=== PATIENT | male | born 1955 | race Caucasian/White ===

== ENCOUNTER → 2016-03-05 | Outpatient (CLI) | payer BC ==
[~2016-03-05] MED LIST: ASPIRIN ADULT L81 M3 PO; CIPRO 250MG TA250 MG PO; FISH OIL500 M1 PO; FLOMAX PO; GLUCOPHAGE1000 MG PO; JANUVIA100 MG PO; LISINOPRIL10 MG PO; LOVASTATIN20 M1 PO; LYRICA 100MG C100 M1 PO; MULTIVITAMIN1 SGL PO; PERCOCET 325 MG1 TAB PO; POLYOX95% PO
== END ==
LOC: LAB 07:43
DX: E11.9 Type 2 diabetes mellitus without complications (principal)

== ENCOUNTER → 2016-09-30 | Outpatient (CLI) | payer BC ==
[2015-04-08 07:44] VITALS: BP 125/72
== END ==
LOC: LAB 07:02
DX: E78.2 Mixed hyperlipidemia (principal); E11.9 Type 2 diabetes mellitus without complications

== ENCOUNTER → 2016-10-08 | Outpatient (CLI) | payer BC ==
[2015-04-08 07:44] VITALS: BP 125/72
== END ==
LOC: LAB 10:20
DX: E11.9 Type 2 diabetes mellitus without complications (principal); I10 Essential (primary) hypertension

== ENCOUNTER → 2017-04-07 | Outpatient (CLI) | payer BC ==
[2015-04-08 07:44] VITALS: BP 125/72
[2017-04-07 12:29] LABS: EOS % 0.6 % (0.0-4.0); HEMATOCRIT 42.5 % (42.0-52.0); HEMOGLOBIN 14.6 g/dL (13.5-18.0); LYMPH# 0.8 (1.50-4.00); MEAN CELL VOLUME 89 fl (78-100); MEAN CORPUSCULAR HEMOGLOBIN 31 pg (27-31); MEAN CORPUSCULAR HGB CONC 34 g/dL (33-37); MEAN PLATELET VOLUME 10.9 fl (7.4-10.4); MONO # 0.3 (0.20-0.80); NEU # 3.9 (1.40-6.50); PLATELET COUNT 108 K/mm3 (130-400); RED BLOOD COUNT 4.79 M/mm3 (4.20-5.60); RED CELL DISTRIBUTION WIDTH 12.3 % (11.5-14.5); WHITE BLOOD COUNT 5.1 K/mm3 (4.8-10.8)
== END ==
LOC: RAD 11:39
PROVIDERS: Nurse Practitioner Family
DX: R05 Cough (principal); R06.02 Shortness of breath

== ENCOUNTER → 2017-04-17 | Outpatient (CLI) | payer BC ==
[2015-04-08 07:44] VITALS: BP 125/72
== END ==
LOC: LAB 13:57
DX: E11.9 Type 2 diabetes mellitus without complications (principal)

== ENCOUNTER → 2017-04-23 | Outpatient (CLI) | payer BC ==
[2015-04-08 07:44] VITALS: BP 125/72
== END ==
LOC: RAD 14:36
DX: M89.8X1 Other specified disorders of bone, shoulder (principal); K43.9 Ventral hernia without obstruction or gangrene

== ENCOUNTER 2017-05-04 06:34 | Emergency (ER) | payer BC ==
[~2017-05-04] VITALS: Ht 180.3 cm; Wt 116.4 kg
[2017-05-04 07:34] LABS: EOS # 0.1 (0.04-0.40); EOS % 3.7 % (0.0-4.0); HEMOGLOBIN 14.3 g/dL (13.5-18.0); LYMPH# 1.2 (1.50-4.00); MEAN CELL VOLUME 89 fl (78-100); MEAN CORPUSCULAR HEMOGLOBIN 32 pg (27-31); MEAN CORPUSCULAR HGB CONC 36 g/dL (33-37); MEAN PLATELET VOLUME 10.6 fl (7.4-10.4); MONO # 0.4 (0.20-0.80); NEU # 2.1 (1.40-6.50); PLATELET COUNT 111 K/mm3 (130-400); RED CELL DISTRIBUTION WIDTH 12.8 % (11.5-14.5); WHITE BLOOD COUNT 3.8 K/mm3 (4.8-10.8)
[2017-05-04 07:53] LABS: BUN/CREATININE RATIO 20.6 (6.0-26.0); CALCIUM 9.4 mg/dL (8.4-10.2); POTASSIUM 4.2 mmol/L (3.6-5.0)
[2017-05-04 09:02] LABS: URINE APPEARANCE CLOUDY; URINE COLOR YELLOW; URINE PROTEIN(semi-quant) NEGATIVE (NEGATIVE)
[2017-05-04 09:03] LABS: URINE BILIRUBIN NEGATIVE (NEGATIVE); URINE BLOOD 250 ery/uL (NEGATIVE); URINE KETONE SMALL (NEGATIVE); URINE LEUKOCYTE ESTERASE NEGATIVE (NEGATIVE); URINE NITRATE NEGATIVE (NEGATIVE); URINE UROBILINOGEN NORMAL (NORMAL); URINE WBC 0-1 /hpf (0-3)
[2017-05-04] MEDS ORDERED: PERCOCET 325 MG1 TA2 PO (09:06)
[2017-05-04 09:48] VITALS: BP 129/75
== END 2017-05-04 09:28 | disposition home or self-care (01) ==
LOC: ED 06:34
PROVIDERS: Family Medicine
DX: N20.1 Calculus of ureter (principal); E11.9 Type 2 diabetes mellitus without complications; I10 Essential (primary) hypertension; Z87.442 Personal history of urinary calculi; Z79.84 Long term (current) use of oral hypoglycemic drugs
CPT/HCPCS: J1885; J2270; Q9967

== ENCOUNTER → 2017-05-07 | Outpatient (CLI) | payer BC ==
[2017-05-04 09:48] VITALS: BP 129/75
[~2017-05-07] MED LIST changes: +PERCOCET 325 MG1 TA2 PO
[2017-05-07 17:32] LABS: PH-URINE 6.5 (5.0 - 8.0); URINE APPEARANCE HAZY; URINE BILIRUBIN NEGATIVE (NEGATIVE); URINE BLOOD 250 ery/uL (NEGATIVE); URINE COLOR PINKISH YELLOW; URINE KETONE NEGATIVE (NEGATIVE); URINE LEUKOCYTE ESTERASE NEGATIVE (NEGATIVE); URINE NITRATE NEGATIVE (NEGATIVE); URINE PROTEIN(semi-quant) 1+ mg/dL (NEGATIVE); URINE UROBILINOGEN NORMAL (NORMAL)
== END ==
LOC: RAD 16:42
PROVIDERS: Family Medicine
DX: N20.0 Calculus of kidney (principal); R50.9 Fever, unspecified

== ENCOUNTER → 2017-10-12 | Outpatient (CLI) | payer BC ==
[2017-10-12 07:41] LABS: ALBUMIN 4.4 g/dL (3.5-5.0); BUN/CREATININE RATIO 25.7 (6.0-26.0); CALCIUM 9.3 mg/dL (8.4-10.2); TOTAL BILIRUBIN 0.5 mg/dL (0.2-1.3); TOTAL PROTEIN 7.4 g/dL (6.3-8.2)
== END ==
LOC: LAB 07:10
PROVIDERS: Family Medicine
DX: E11.40 Type 2 diabetes mellitus with diabetic neuropathy, unspecified (principal); I10 Essential (primary) hypertension; E78.5 Hyperlipidemia, unspecified; E66.9 Obesity, unspecified; L74.519 Primary focal hyperhidrosis, unspecified; M25.511 Pain in right shoulder; G89.29 Other chronic pain; M19.90 Unspecified osteoarthritis, unspecified site; Z86.31 Personal history of diabetic foot ulcer

== ENCOUNTER → 2018-01-11 | Outpatient (CLI) | payer BC | LOC: LAB 08:13 | DX: E11.40 Type 2 diabetes mellitus with diabetic neuropathy, unspecified (principal); E11.69 Type 2 diabetes mellitus with other specified complication; L84 Corns and callosities; I10 Essential (primary) hypertension; Z86.31 Personal history of diabetic foot ulcer ==

== ENCOUNTER 2018-01-14 09:30 | Outpatient (RCR) | payer BC | END 2018-03-08 | disposition home or self-care (01) | LOC: PT | DX: M19.90 Unspecified osteoarthritis, unspecified site (principal); M25.511 Pain in right shoulder; G89.29 Other chronic pain; M25.512 Pain in left shoulder; Z91.81 History of falling ==

== ENCOUNTER → 2018-01-15 | Outpatient (CLI) | payer BC | LOC: RAD 10:50 | DX: M19.012 Primary osteoarthritis, left shoulder (principal); M51.36 Other intervertebral disc degeneration, lumbar region; M16.0 Bilateral primary osteoarthritis of hip; M41.85 Other forms of scoliosis, thoracolumbar region; M50.31 Other cervical disc degeneration, high cervical region ==

== ENCOUNTER → 2018-01-18 | Outpatient (CLI) | payer BC | LOC: RAD 15:15 | DX: M50.30 Other cervical disc degeneration, unspecified cervical region (principal); M50.221 Other cervical disc displacement at C4-C5 level; M48.02 Spinal stenosis, cervical region; M47.26 Other spondylosis with radiculopathy, lumbar region; M51.27 Other intervertebral disc displacement, lumbosacral region; M48.061 Spinal stenosis, lumbar region without neurogenic claudication ==

== ENCOUNTER → 2018-02-03 | Outpatient (CLI) | payer BC | LOC: RAD 09:04 | DX: S46.002A Unspecified injury of muscle(s) and tendon(s) of the rotator cuff of left shoulder, initial encounter (principal); M24.012 Loose body in left shoulder ==

== ENCOUNTER → 2018-02-08 | Outpatient (CLI) | payer BC | LOC: RAD 14:03 | DX: M19.012 Primary osteoarthritis, left shoulder (principal); S46.012A Strain of muscle(s) and tendon(s) of the rotator cuff of left shoulder, initial encounter; M75.92 Shoulder lesion, unspecified, left shoulder; Z91.81 History of falling ==

== ENCOUNTER → 2018-04-26 | Outpatient (CLI) | payer BC | LOC: LAB 07:03 | DX: E11.9 Type 2 diabetes mellitus without complications (principal) ==

== ENCOUNTER → 2018-05-10 | Outpatient (CLI) | payer BC | LOC: RAD 09:33 | DX: J01.80 Other acute sinusitis (principal); I10 Essential (primary) hypertension ==

== ENCOUNTER 2018-05-14 14:30 | Outpatient (RCR) | payer BC | END 2018-05-14 15:00 | disposition home or self-care (01) | LOC: PT 14:30 | DX: M47.817 Spondylosis without myelopathy or radiculopathy, lumbosacral region (principal) ==

== ENCOUNTER 2018-08-23 10:57 | Outpatient (RCR) | payer MEDICARE, OTHER ==
[~2018-08-23 10:57] MED LIST changes: +JANUVIA 100MG100 MG PO; -JANUVIA100 MG PO; -LYRICA 100MG C100 M1 PO; +LYRICA100 MG PO
[2018-10-13] MEDS ORDERED: PIOGLITAZONE HC15 MG PO (13:46)
[2018-10-13] MEDS ORDERED: MIRALAX17 GM PO (13:48)
== END 2018-08-23 11:30 | disposition still patient (30) ==
LOC: SPEECH 10:57
DX: R13.13 Dysphagia, pharyngeal phase (principal); G47.33 Obstructive sleep apnea (adult) (pediatric); E11.9 Type 2 diabetes mellitus without complications; R07.0 Pain in throat

== ENCOUNTER → 2018-08-30 | Outpatient (CLI) | payer MEDICARE, OTHER ==
[~2018-08-30] MED LIST changes: -JANUVIA 100MG100 MG PO; +JANUVIA100 MG PO; +LYRICA 100MG C100 M1 PO; -LYRICA100 MG PO
== END ==
LOC: RAD 07:24
DX: R13.10 Dysphagia, unspecified (principal); R07.0 Pain in throat
CPT/HCPCS: Q9967

== ENCOUNTER → 2018-10-11 | Outpatient (CLI) | payer MEDICARE, OTHER ==
[~2018-10-11] MED LIST changes: +JANUVIA 100MG100 MG PO; -JANUVIA100 MG PO; -LYRICA 100MG C100 M1 PO; +LYRICA100 MG PO; +MIRALAX17 GM PO; +PIOGLITAZONE HC15 MG PO
[2018-10-11 07:58] LABS: ALBUMIN 4.1 g/dL (3.4-4.8); POTASSIUM 4.1 mmol/L (3.5-5.1)
[2018-10-11 07:59] LABS: CALCIUM 9.4 mg/dL (8.3-10.5)
[2018-10-11 08:00] LABS: TOTAL PROTEIN 7.7 g/dL (6.2-8.1)
[2018-10-11 08:02] LABS: TOTAL BILIRUBIN 0.4 mg/dL (0.2-1.2)
[2018-10-11 17:57] LABS: HEPATITIS C VIRUS ANTIBODY Negative (Negative)
== END ==
LOC: LAB 07:06
PROVIDERS: Family Medicine
DX: Z11.3 Encounter for screening for infections with a predominantly sexual mode of transmission (principal); Z12.5 Encounter for screening for malignant neoplasm of prostate; Z13.6 Encounter for screening for cardiovascular disorders; E11.9 Type 2 diabetes mellitus without complications; E78.5 Hyperlipidemia, unspecified; I10 Essential (primary) hypertension

== ENCOUNTER → 2018-10-13 | Outpatient (CLI) | payer MEDICARE, OTHER ==
[~2018-10-13] VITALS: Ht 180.3 cm; Wt 122.7 kg
[2018-10-13 13:35] VITALS: BP 139/76
== END ==
LOC: AMSURD 10:01
DX: Z11.3 Encounter for screening for infections with a predominantly sexual mode of transmission (principal); Z12.5 Encounter for screening for malignant neoplasm of prostate; Z13.6 Encounter for screening for cardiovascular disorders

== ENCOUNTER → 2018-10-26 | Outpatient (CLI) | payer MEDICARE, OTHER ==
[2018-10-13 13:35] VITALS: BP 139/76
== END ==
LOC: LAB 13:11
DX: Z11.3 Encounter for screening for infections with a predominantly sexual mode of transmission (principal); Z12.5 Encounter for screening for malignant neoplasm of prostate; Z13.6 Encounter for screening for cardiovascular disorders

== ENCOUNTER → 2018-10-28 | Outpatient (CLI) | payer MEDICARE, OTHER ==
[2018-10-13 13:35] VITALS: BP 139/76
== END ==
LOC: RAD 08:51
DX: Z00.00 Encounter for general adult medical examination without abnormal findings (principal); Z13.6 Encounter for screening for cardiovascular disorders; I10 Essential (primary) hypertension; E11.40 Type 2 diabetes mellitus with diabetic neuropathy, unspecified; M19.90 Unspecified osteoarthritis, unspecified site; M51.36 Other intervertebral disc degeneration, lumbar region; M50.122 Cervical disc disorder at C5-C6 level with radiculopathy; L57.0 Actinic keratosis

== ENCOUNTER → 2019-01-03 | Outpatient (CLI) | payer MEDICARE, OTHER ==
[2018-10-13 13:35] VITALS: BP 139/76
== END ==
LOC: LAB 08:04
DX: E11.9 Type 2 diabetes mellitus without complications (principal)

== ENCOUNTER → 2019-04-04 | Outpatient (CLI) | payer MEDICARE, OTHER ==
[2018-10-13 13:35] VITALS: BP 139/76
== END ==
LOC: LAB 07:04
DX: E11.9 Type 2 diabetes mellitus without complications (principal)

== ENCOUNTER → 2019-11-10 | Outpatient (CLI) | payer MEDICARE, OTHER ==
[2018-10-13 13:35] VITALS: BP 139/76
== END ==
LOC: AMSURD 09:32
DX: I10 Essential (primary) hypertension (principal); E11.9 Type 2 diabetes mellitus without complications; M50.122 Cervical disc disorder at C5-C6 level with radiculopathy; K43.9 Ventral hernia without obstruction or gangrene

== ENCOUNTER → 2019-11-14 | Outpatient (CLI) | payer MEDICARE, OTHER ==
[2018-10-13 13:35] VITALS: BP 139/76
[2019-11-14 07:38] LABS: POTASSIUM 4.2 mmol/L (3.5-5.1)
[2019-11-14 07:39] LABS: ALBUMIN 4.3 g/dL (3.4-4.8)
[2019-11-14 07:40] LABS: CALCIUM 9.2 mg/dL (8.3-10.5)
[2019-11-14 07:41] LABS: TOTAL PROTEIN 7.3 g/dL (6.2-8.1)
[2019-11-14 07:43] LABS: TOTAL BILIRUBIN 0.4 mg/dL (0.2-1.2)
== END ==
LOC: LAB 07:20
PROVIDERS: Family Medicine
DX: Z12.5 Encounter for screening for malignant neoplasm of prostate (principal); E78.5 Hyperlipidemia, unspecified; E11.9 Type 2 diabetes mellitus without complications; I10 Essential (primary) hypertension

== ENCOUNTER → 2020-01-16 | Outpatient (CLI) | payer MEDICARE, OTHER ==
[2018-10-13 13:35] VITALS: BP 139/76
== END ==
LOC: LAB 09:01
DX: K22.8 Other specified diseases of esophagus (principal); Z20.828 Contact with and (suspected) exposure to other viral communicable diseases

== ENCOUNTER → 2020-01-19 | Day surgery (SDC) | payer MEDICARE, OTHER ==
[2018-10-13 13:35] VITALS: BP 139/76
== END ==
LOC: MSO 07:29
DX: K21.00 Gastro-esophageal reflux disease with esophagitis, without bleeding (principal); I10 Essential (primary) hypertension; E78.5 Hyperlipidemia, unspecified; M19.90 Unspecified osteoarthritis, unspecified site; E11.51 Type 2 diabetes mellitus with diabetic peripheral angiopathy without gangrene; E66.9 Obesity, unspecified; Z79.4 Long term (current) use of insulin; Z88.8 Allergy status to other drugs, medicaments and biological substances; Z79.82 Long term (current) use of aspirin; Z98.61 Coronary angioplasty status; G47.33 Obstructive sleep apnea (adult) (pediatric)
CPT/HCPCS: 00731; J2704; J7030

== ENCOUNTER → 2020-02-20 | Outpatient (CLI) | payer MEDICARE, OTHER ==
[2018-10-13 13:35] VITALS: BP 139/76
[2020-02-20 14:23] LABS: ALBUMIN 4.3 g/dL (3.4-4.8)
[2020-02-20 14:24] LABS: CALCIUM 9.3 mg/dL (8.3-10.5)
[2020-02-20 14:25] LABS: TOTAL PROTEIN 7.7 g/dL (6.2-8.1)
[2020-02-20 14:27] LABS: TOTAL BILIRUBIN 0.4 mg/dL (0.2-1.2)
== END ==
LOC: LAB 14:01
PROVIDERS: Family Medicine
DX: E11.9 Type 2 diabetes mellitus without complications (principal); I10 Essential (primary) hypertension

== ENCOUNTER → 2020-02-21 | Outpatient (CLI) | payer MEDICARE, OTHER ==
[2018-10-13 13:35] VITALS: BP 139/76
== END ==
LOC: RAD 07:59
DX: R91.1 Solitary pulmonary nodule (principal); K76.0 Fatty (change of) liver, not elsewhere classified
CPT/HCPCS: Q9967

== ENCOUNTER → 2020-03-22 | Outpatient (CLI) | payer MEDICARE, OTHER ==
[2018-10-13 13:35] VITALS: BP 139/76
[2020-03-22 13:01] LABS: URINE COLOR YELLOW
[2020-03-22 13:02] LABS: URINE BILIRUBIN NEGATIVE (NEGATIVE)
[2020-03-22 13:03] LABS: URINE APPEARANCE CLEAR; URINE NITRATE NEGATIVE (NEGATIVE); URINE PROTEIN(semi-quant) TRACE mg/dL (NEGATIVE); URINE UROBILINOGEN NORMAL (NORMAL)
[2020-03-22 13:04] LABS: URINE BLOOD 50 ery/uL (NEGATIVE); URINE KETONE NEGATIVE (NEGATIVE); URINE LEUKOCYTE ESTERASE NEGATIVE (NEGATIVE); URINE WBC 0-1 /hpf (0-3)
== END ==
LOC: LAB 09:35
PROVIDERS: Family Medicine
DX: Z20.822 Contact with and (suspected) exposure to COVID-19 (principal)

== ENCOUNTER → 2020-06-18 | Outpatient (CLI) | payer MEDICARE, OTHER ==
[2018-10-13 13:35] VITALS: BP 139/76
== END ==
LOC: RAD 12:58
DX: M50.30 Other cervical disc degeneration, unspecified cervical region (principal); M79.601 Pain in right arm

== ENCOUNTER 2020-06-28 09:00 | Outpatient (RCR) | payer MEDICARE, OTHER ==
[2018-10-13 13:35] VITALS: BP 139/76
== END 2020-07-19 17:00 ==
LOC: OT 09:00
DX: G56.01 Carpal tunnel syndrome, right upper limb (principal)

== ENCOUNTER → 2020-07-02 | Outpatient (CLI) | payer MEDICARE, OTHER ==
[2018-10-13 13:35] VITALS: BP 139/76
[2020-07-02 11:38] LABS: CALCIUM 9.2 mg/dL (8.3-10.5)
== END ==
LOC: LAB 11:11
PROVIDERS: Family Medicine
DX: E11.43 Type 2 diabetes mellitus with diabetic autonomic (poly)neuropathy (principal); I10 Essential (primary) hypertension

== ENCOUNTER → 2020-08-03 | Outpatient (CLI) | payer MEDICARE, OTHER ==
[2018-10-13 13:35] VITALS: BP 139/76
== END ==
LOC: LAB 14:53
DX: E11.9 Type 2 diabetes mellitus without complications (principal)

== ENCOUNTER → 2020-08-15 | Outpatient (CLI) | payer MEDICARE, OTHER ==
[2018-10-13 13:35] VITALS: BP 139/76
== END ==
LOC: RAD 09:13
DX: G56.03 Carpal tunnel syndrome, bilateral upper limbs (principal)

== ENCOUNTER → 2020-09-12 | Outpatient (CLI) | payer MEDICARE, OTHER | LOC: LAB 11:49 | DX: Z20.822 Contact with and (suspected) exposure to COVID-19 (principal) ==

== ENCOUNTER → 2020-10-12 | Outpatient (CLI) | payer MEDICARE, OTHER | LOC: RAD 15:37 → LAB 15:37 | DX: R14.0 Abdominal distension (gaseous) (principal); R10.9 Unspecified abdominal pain ==

== ENCOUNTER → 2020-12-03 | Outpatient (CLI) | payer MEDICARE, OTHER ==
[2020-12-03 07:59] LABS: POTASSIUM 4.1 mmol/L (3.5-5.1)
[2020-12-03 08:00] LABS: ALBUMIN 4.1 g/dL (3.4-4.8)
[2020-12-03 08:01] LABS: CALCIUM 9.8 mg/dL (8.3-10.5)
[2020-12-03 08:02] LABS: TOTAL PROTEIN 7.5 g/dL (6.2-8.1)
[2020-12-03 08:04] LABS: TOTAL BILIRUBIN 0.5 mg/dL (0.2-1.2)
== END ==
LOC: LAB 07:14
PROVIDERS: Family Medicine
DX: Z12.5 Encounter for screening for malignant neoplasm of prostate (principal); I10 Essential (primary) hypertension; E78.5 Hyperlipidemia, unspecified; E11.43 Type 2 diabetes mellitus with diabetic autonomic (poly)neuropathy

== ENCOUNTER → 2021-06-05 | Outpatient (CLI) | payer MEDICARE, OTHER | LOC: LAB 07:05 | DX: L85.8 Other specified epidermal thickening (principal); E11.9 Type 2 diabetes mellitus without complications ==

== ENCOUNTER → 2021-08-09 | Outpatient (CLI) | payer MEDICARE, OTHER | LOC: RAD 14:29 | DX: M50.10 Cervical disc disorder with radiculopathy, unspecified cervical region (principal); M51.36 Other intervertebral disc degeneration, lumbar region ==

== ENCOUNTER → 2021-08-13 | Outpatient (CLI) | payer MEDICARE, OTHER ==
[2021-08-13 11:36] LABS: BASO # 0.04 K/mm3 (0.02-0.10); EOS # 0.07 K/mm3 (0.04-0.40); EOS % 1.5 % (0.0-4.0); HEMATOCRIT 41.5 % (42.0-52.0); HEMOGLOBIN 14.4 g/dL (13.5-18.0); LYMPH# 1.43 K/mm3 (1.50-4.00); MEAN CELL VOLUME 89 fl (78-100); MEAN CORPUSCULAR HEMOGLOBIN 31 pg (27-31); MEAN CORPUSCULAR HGB CONC 35 g/dL (33-37); MEAN PLATELET VOLUME 10.8 fl (7.4-10.4); NEU # 2.67 K/mm3 (1.40-6.50); PLATELET COUNT 118 K/mm3 (130-400); RED BLOOD COUNT 4.66 M/mm3 (4.20-5.60); WHITE BLOOD COUNT 4.6 K/mm3 (4.8-10.8)
[2021-08-13 11:40] LABS: ALBUMIN 4.2 g/dL (3.4-4.8)
[2021-08-13 11:41] LABS: CALCIUM 9.6 mg/dL (8.3-10.5)
[2021-08-13 11:42] LABS: TOTAL PROTEIN 7.5 g/dL (6.2-8.1)
[2021-08-13 11:44] LABS: TOTAL BILIRUBIN 0.6 mg/dL (0.2-1.2)
== END ==
LOC: LAB 11:21
PROVIDERS: Internal Medicine Interventional Cardiology
DX: R06.02 Shortness of breath (principal)

== ENCOUNTER → 2021-09-10 | Outpatient (CLI) | payer MEDICARE, OTHER ==
[2021-09-10 08:09] LABS: CALCIUM 9.4 mg/dL (8.3-10.5)
[2021-09-10 08:16] LABS: HEMATOCRIT 40.5 % (42.0-52.0); MEAN PLATELET VOLUME 11.7 fl (7.4-10.4); RED BLOOD COUNT 4.52 M/mm3 (4.20-5.60); RED CELL DISTRIBUTION WIDTH 12.3 % (11.5-14.5); WHITE BLOOD COUNT 4.6 K/mm3 (4.8-10.8)
== END ==
LOC: LAB 07:03
PROVIDERS: Family Medicine
DX: E11.9 Type 2 diabetes mellitus without complications (principal); R06.02 Shortness of breath

== ENCOUNTER → 2021-09-11 | Outpatient (CLI) | payer MEDICARE, OTHER | LOC: RAD 10:09 | DX: M25.572 Pain in left ankle and joints of left foot (principal) ==

== ENCOUNTER → 2022-01-01 | Outpatient (CLI) | payer MEDICARE, OTHER | LOC: LAB 08:56 | DX: Z12.5 Encounter for screening for malignant neoplasm of prostate (principal); F10.10 Alcohol abuse, uncomplicated; E11.9 Type 2 diabetes mellitus without complications; I10 Essential (primary) hypertension; E11.43 Type 2 diabetes mellitus with diabetic autonomic (poly)neuropathy; E78.5 Hyperlipidemia, unspecified; M51.36 Other intervertebral disc degeneration, lumbar region; M50.10 Cervical disc disorder with radiculopathy, unspecified cervical region; G89.4 Chronic pain syndrome ==

== ENCOUNTER → 2022-01-08 | Outpatient (CLI) | payer MEDICARE, OTHER | LOC: LAB 09:16 | DX: R06.02 Shortness of breath (principal) ==

== ENCOUNTER 2022-03-06 09:00 | Outpatient (RCR) | payer MEDICARE, OTHER | END 2022-04-01 | disposition home or self-care (01) | LOC: PT | DX: M54.16 Radiculopathy, lumbar region (principal) ==

== ENCOUNTER → 2022-04-23 | Outpatient (CLI) | payer MEDICARE, OTHER | LOC: RAD 09:43 | DX: M47.25 Other spondylosis with radiculopathy, thoracolumbar region (principal); M25.78 Osteophyte, vertebrae ==

== ENCOUNTER → 2022-05-05 | Outpatient (CLI) | payer MEDICARE, OTHER | LOC: LAB 09:33 | DX: E11.43 Type 2 diabetes mellitus with diabetic autonomic (poly)neuropathy (principal); R06.02 Shortness of breath; R35.0 Frequency of micturition ==

== ENCOUNTER → 2022-05-15 | Outpatient (CLI) | payer MEDICARE, OTHER | LOC: RAD 08:55 | DX: Z01.812 Encounter for preprocedural laboratory examination (principal); M54.16 Radiculopathy, lumbar region ==

== ENCOUNTER → 2022-05-16 | Outpatient (CLI) | payer MEDICARE, OTHER ==
[2022-05-16 08:14] LABS: URINE WBC 0 /hpf (0-3)
[2022-05-16 08:15] LABS: BASO # 0.03 K/mm3 (0.02-0.10); EOS # 0.09 K/mm3 (0.04-0.40); EOS % 2.5 % (0.0-4.0); HEMATOCRIT 40.8 % (42.0-52.0); HEMOGLOBIN 14.1 g/dL (13.5-18.0); LYMPH# 1.14 K/mm3 (1.50-4.00); MEAN CELL VOLUME 89 fl (78-100); MEAN CORPUSCULAR HEMOGLOBIN 31 pg (27-31); MEAN CORPUSCULAR HGB CONC 35 g/dL (33-37); MEAN PLATELET VOLUME 10.7 fl (7.4-10.4); NEU # 2.08 K/mm3 (1.40-6.50); PLATELET COUNT 89 K/mm3 (130-400); RED BLOOD COUNT 4.57 M/mm3 (4.20-5.60); RED CELL DISTRIBUTION WIDTH 12.3 % (11.5-14.5); WHITE BLOOD COUNT 3.7 K/mm3 (4.8-10.8)
[2022-05-16 08:29] LABS: ALBUMIN 4.1 g/dL (3.4-4.8)
[2022-05-16 08:30] LABS: POTASSIUM 4.2 mmol/L (3.5-5.1)
[2022-05-16 08:31] LABS: CALCIUM 9.7 mg/dL (8.3-10.5)
[2022-05-16 08:32] LABS: TOTAL PROTEIN 7.2 g/dL (6.2-8.1)
[2022-05-16 08:34] LABS: TOTAL BILIRUBIN 0.5 mg/dL (0.2-1.2)
[2022-05-16 08:45] LABS: URINE APPEARANCE CLEAR; URINE BILIRUBIN NEGATIVE (NEGATIVE); URINE BLOOD TRACE (NEGATIVE); URINE COLOR YELLOW; URINE GLUCOSE NEGATIVE (NEGATIVE); URINE KETONE NEGATIVE (NEGATIVE); URINE LEUKOCYTE ESTERASE NEGATIVE (NEGATIVE); URINE NITRATE NEGATIVE (NEGATIVE); URINE PROTEIN(semi-quant) NEGATIVE (NEGATIVE); URINE UROBILINOGEN NORMAL (NORMAL)
== END ==
LOC: LAB 07:58
PROVIDERS: Family Medicine
DX: Z01.812 Encounter for preprocedural laboratory examination (principal); M54.16 Radiculopathy, lumbar region

== ENCOUNTER → 2022-12-10 | Outpatient (CLI) | payer MEDICARE, OTHER | LOC: RAD 09:19 | DX: M17.12 Unilateral primary osteoarthritis, left knee (principal) ==

== ENCOUNTER → 2023-02-26 | Outpatient (CLI) | payer MEDICARE, OTHER ==
[2023-02-26 14:23] LABS: BASO # 0.04 K/mm3 (0.02-0.10); EOS # 0.07 K/mm3 (0.04-0.40); EOS % 1.4 % (0.0-4.0); MEAN CELL VOLUME 90 fl (78-100); MEAN CORPUSCULAR HEMOGLOBIN 31 pg (27-31); MEAN CORPUSCULAR HGB CONC 34 g/dL (33-37); MEAN PLATELET VOLUME 10.6 fl (7.4-10.4); MONO # 0.29 K/mm3 (0.20-0.80); PLATELET COUNT 121 K/mm3 (130-400); RED BLOOD COUNT 4.22 M/mm3 (4.20-5.60); RED CELL DISTRIBUTION WIDTH 12.4 % (11.5-14.5); WHITE BLOOD COUNT 5.1 K/mm3 (4.8-10.8)
[2023-02-26 14:29] LABS: CALCIUM 9.1 mg/dL (8.3-10.5)
[2023-02-26 14:30] LABS: TOTAL PROTEIN 6.9 g/dL (6.2-8.1)
[2023-02-26 14:32] LABS: TOTAL BILIRUBIN 0.3 mg/dL (0.2-1.2)
[2023-02-26 15:03] LABS: D-DIMER 0.6 mg/L FEU (0.15-0.50)
== END ==
LOC: LAB 14:05
PROVIDERS: Nurse Practitioner Family
DX: M79.661 Pain in right lower leg (principal)

== ENCOUNTER → 2023-03-05 | Outpatient (CLI) | payer MEDICARE, OTHER ==
[2023-03-05 07:42] LABS: CALCIUM 9.8 mg/dL (8.3-10.5)
== END ==
LOC: LAB 07:17
PROVIDERS: Family Medicine
DX: M51.16 Intervertebral disc disorders with radiculopathy, lumbar region (principal); M50.10 Cervical disc disorder with radiculopathy, unspecified cervical region; E11.9 Type 2 diabetes mellitus without complications; G89.4 Chronic pain syndrome

== ENCOUNTER → 2023-03-09 | Outpatient (CLI) | payer MEDICARE, OTHER | LOC: LAB 09:41 | PROVIDERS: Family Medicine | DX: Z12.5 Encounter for screening for malignant neoplasm of prostate (principal); Z11.59 Encounter for screening for other viral diseases; I10 Essential (primary) hypertension; E11.43 Type 2 diabetes mellitus with diabetic autonomic (poly)neuropathy; E78.5 Hyperlipidemia, unspecified ==

== ENCOUNTER → 2023-04-11 | Outpatient (CLI) | payer MEDICARE, OTHER | LOC: LAB 12:01 | DX: L02.611 Cutaneous abscess of right foot (principal) ==

== ENCOUNTER → 2023-09-07 | Outpatient (CLI) | payer MEDICARE, OTHER | LOC: LAB 09:49 | DX: E11.42 Type 2 diabetes mellitus with diabetic polyneuropathy (principal) ==

== ENCOUNTER → 2023-12-10 | Outpatient (CLI) | payer MEDICARE, OTHER ==
[2023-12-10 09:52] LABS: CALCIUM 9.2 mg/dL (8.3-10.5)
== END ==
LOC: LAB 09:33
PROVIDERS: Family Medicine
DX: E11.42 Type 2 diabetes mellitus with diabetic polyneuropathy (principal)

== ENCOUNTER → 2023-12-24 | Day surgery (SDC) | payer MEDICARE, OTHER ==
[~2023-12-24] MED LIST changes: +Balanced Salt Ophth Irrig 15 ML BOTTLE *BULK OP SCH; +Cyclopentolate 2% Ophth Soln 1 BOTTLE *BULK OP SCH; +EPINEPHrine 1 MG/ML (1:1000) 1 ML AMP IR SCH; +Ketorolac 0.5% Ophth Soln 5 ML Bottle *BULK OP SCH; +Midazolam 2 MG/2 ML VIAL IV ONE; +Phenylephrine 10% Ophth Soln 5 ML BOTTLE *BULK OP SCH; +Polymyxin B Sulfate/Trimethoprim Ophth Soln 10 ML BOTTLE *BULK OP SCH; +Proparacaine 0.5% Ophth Soln 15 ML BOTTLE *BULK OP SCH; +Tropicamide 1% Ophth Soln Bottle *BULK OP SCH
== END ==
LOC: MSO 06:47
DX: E11.36 Type 2 diabetes mellitus with diabetic cataract (principal); H25.12 Age-related nuclear cataract, left eye; Z87.891 Personal history of nicotine dependence; Z79.02 Long term (current) use of antithrombotics/antiplatelets; Z79.4 Long term (current) use of insulin; Z79.84 Long term (current) use of oral hypoglycemic drugs
CPT/HCPCS: 00142; J0171; J2250; V2632

== ENCOUNTER → 2024-01-14 | Day surgery (SDC) | payer MEDICARE, OTHER | LOC: MSO 06:45 | DX: E11.36 Type 2 diabetes mellitus with diabetic cataract (principal); H25.11 Age-related nuclear cataract, right eye; G47.33 Obstructive sleep apnea (adult) (pediatric); E66.9 Obesity, unspecified; Z79.02 Long term (current) use of antithrombotics/antiplatelets; Z79.4 Long term (current) use of insulin; Z79.84 Long term (current) use of oral hypoglycemic drugs | CPT/HCPCS: 00142; J0171; J2250; V2632 ==

== ENCOUNTER → 2024-02-10 | Outpatient (CLI) | payer MEDICARE, OTHER ==
[~2024-02-10] MED LIST changes: -Balanced Salt Ophth Irrig 15 ML BOTTLE *BULK OP SCH; -Cyclopentolate 2% Ophth Soln 1 BOTTLE *BULK OP SCH; -EPINEPHrine 1 MG/ML (1:1000) 1 ML AMP IR SCH; -Ketorolac 0.5% Ophth Soln 5 ML Bottle *BULK OP SCH; -Midazolam 2 MG/2 ML VIAL IV ONE; -Phenylephrine 10% Ophth Soln 5 ML BOTTLE *BULK OP SCH; -Polymyxin B Sulfate/Trimethoprim Ophth Soln 10 ML BOTTLE *BULK OP SCH; -Proparacaine 0.5% Ophth Soln 15 ML BOTTLE *BULK OP SCH; -Tropicamide 1% Ophth Soln Bottle *BULK OP SCH
[2024-02-10 11:10] LABS: HEMATOCRIT 37.1 % (42.0-52.0); HEMOGLOBIN 12.7 g/dL (13.5-18.0); MEAN PLATELET VOLUME 10.9 fl (7.4-10.4); RED BLOOD COUNT 4.18 M/mm3 (4.20-5.60); WHITE BLOOD COUNT 3.9 K/mm3 (4.8-10.8)
[2024-02-10 11:18] LABS: CALCIUM 9.7 mg/dL (8.3-10.5)
== END ==
LOC: LAB 10:51
PROVIDERS: Nurse Practitioner Primary Care
DX: I73.9 Peripheral vascular disease, unspecified (principal); S91.301A Unspecified open wound, right foot, initial encounter

== ENCOUNTER → 2024-03-21 | Outpatient (CLI) | payer MEDICARE, OTHER ==
[2024-03-21 23:51] LABS: CREATININE OTHER SOURCE 23 mg/dL (47-110)
== END ==
LOC: LAB 10:09
PROVIDERS: Family Medicine
DX: E11.42 Type 2 diabetes mellitus with diabetic polyneuropathy (principal)

== ENCOUNTER → 2024-03-25 | Outpatient (CLI) | payer MEDICARE, OTHER | LOC: RAD 14:02 | DX: M19.011 Primary osteoarthritis, right shoulder (principal); M19.012 Primary osteoarthritis, left shoulder ==

== ENCOUNTER → 2024-04-15 | Outpatient (CLI) | payer MEDICARE, OTHER ==
[~2024-04-15] MED LIST changes: +Iohexol 300 - 100 ML VIAL IV ONE; +NS 100 ML IV ONE
[2024-04-15 11:43] LABS: BASO # 0.02 K/mm3 (0.02-0.10); EOS # 0.08 K/mm3 (0.04-0.40); EOS % 1.9 % (0.0-4.0); HEMATOCRIT 37.7 % (42.0-52.0); HEMOGLOBIN 12.5 g/dL (13.5-18.0); LYMPH# 1.13 K/mm3 (1.50-4.00); MEAN CELL VOLUME 87 fl (78-100); MEAN CORPUSCULAR HEMOGLOBIN 29 pg (27-31); MEAN CORPUSCULAR HGB CONC 33 g/dL (33-37); MEAN PLATELET VOLUME 11.7 fl (7.4-10.4); MONO # 0.33 K/mm3 (0.20-0.80); NEU # 2.73 K/mm3 (1.40-6.50); PLATELET COUNT 118 K/mm3 (130-400); RED BLOOD COUNT 4.33 M/mm3 (4.20-5.60); RED CELL DISTRIBUTION WIDTH 13.8 % (11.5-14.5); WHITE BLOOD COUNT 4.3 K/mm3 (4.8-10.8)
[2024-04-15 11:47] LABS: ALBUMIN 4.1 g/dL (3.4-4.8); SODIUM 138 mmol/L (136-145)
[2024-04-15 11:48] LABS: CALCIUM 9.5 mg/dL (8.3-10.5)
[2024-04-15 11:49] LABS: GLUCOSE 117 mg/dL (75-110); TOTAL PROTEIN 7.4 g/dL (6.2-8.1)
[2024-04-15 11:50] LABS: CARBON DIOXIDE 22 mmol/L (23-31)
[2024-04-15 11:51] LABS: TOTAL BILIRUBIN 0.5 mg/dL (0.2-1.2)
[2024-04-15 11:54] LABS: AST-SGOT 36 U/L (5-34)
[2024-04-15 11:56] LABS: ALT/SGPT 38 U/L (0-55)
[2024-04-15 12:15] LABS: PARTIAL THROMBOPLASTIN TIME 28.4 SECONDS (21.0-32.0); PROTHROMBIN TIME 10.8 SECONDS (9.0-12.0)
== END ==
LOC: LAB 11:21
PROVIDERS: Physician Assistant
DX: R10.9 Unspecified abdominal pain (principal); T14.8XXA Other injury of unspecified body region, initial encounter
CPT/HCPCS: Q9967

== ENCOUNTER → 2024-06-20 | Outpatient (CLI) | payer MEDICARE, OTHER ==
[~2024-06-20] MED LIST changes: +AMOXICILLIN AND1 TA2 PO; +CLOPIDOGREL75 M2 PO; +DAILY VALUE1 EACH PO; +DULOXETINE60 MG PO; +FLOMAX0.4 MG PO; +HEARTBURN RELIE15 MG PO; -Iohexol 300 - 100 ML VIAL IV ONE; +LANTUS PEN100 U/ML SQ; +LANTUS SOLOS100 U/ML SQ; +NAPROSYN500 M1 PO; -NS 100 ML IV ONE; +OZEMPIC0.25 MG/02 SQ; +PREGABALIN100 MG PO; +TIZANIDINE HYDRO2 M1 PO; +VALIUM5 M1 PO
== END ==
LOC: LAB 09:20
DX: E11.42 Type 2 diabetes mellitus with diabetic polyneuropathy (principal); E78.2 Mixed hyperlipidemia